=== PATIENT | female | born 1955 | race Caucasian/White ===

== ENCOUNTER 2019-08-04 06:32 | Day surgery (SDC) | payer MEDICARE, BC ==
[~2019-08-04 06:32] MED LIST: Buffered Lidocaine 1% SYRIN* 1 ML/SYRINGE INTRADERM ONE
[2019-08-04] MEDS ORDERED: Midazolam* 1 MG/ML 2 ML VIAL (2 MG) ONE ×3 (08:33→09:59)
[2019-08-04 09:08] VITALS: BP 130/73
--- NOTE | 2019-08-04 10:30 | OP ---
DATE OF OPERATION: 08/04/2019 [facility] DATE OF : 1955. SURGEON: Jose Ocampo M.D. PREOPERATIVE DIAGNOSIS: Cataract right eye. POSTOPERATIVE DIAGNOSIS: Cataract right eye. OPERATIVE PROCEDURE: Extracapsular cataract extraction with intraocular lens implant right eye. DESCRIPTION OF PROCEDURE: The patient was brought to the operating room after being given 1/2% Alcaine with epinephrine drops in the preoperative area. The eye was prepped and draped in the usual sterile fashion. Sterile drape and eyelid speculum were placed. Again, topical 1/2% Alcaine with epinephrine was given. A paracentesis incision was made at the 9 o'clock position with the No.75 blade. Clear cornea incision 2.2 x 2.2-mm was created at the 12 o'clock position starting at the anterior limbus using the 2.2-mm keratome. The anterior chamber was irrigated with 0.4 mL of 1% non-preservative intracameral lidocaine and filled with DisCoVisc. A capsulorrhexis was completed using the cystotome and the Utrata forceps. Hydrodissection was performed with balanced salt solution. The lens nucleus was removed with the Phacoemulsification handpiece without incident. Cortex was removed with the irrigation-aspiration handpiece. The capsular bag was re-inflated using DisCoVisc and an [id number] implant was inserted with the shooter, oriented to the 83 degree meridian. Horizontal reference weldon were made with the patient seated in the preoperative area. All measurements confirmed with ORA. The irrigation- aspiration handpiece was used to remove all residual DisCoVisc. The eye was refilled with balanced salt solution and the wound checked and found to be watertight. Topical Maxitrol drops were given. [id number]/[facility] #: [id number] [facility]
[2019-08-04] MEDS ORDERED: Lidocaine 1% MPF ** 5 ML VIAL ONE (11:20)
[2019-08-04] MEDS ORDERED: Proparacaine 0.5% OPHTH.SOL* 15 ML BTL ONE (11:20)
[2019-08-04] MEDS ORDERED: Lidocaine 2% w/ EPI 1:200,000* 20 ML SDV VIAL ONE (11:20)
[2019-08-04] MEDS ORDERED: acetaZOLAMIDE TAB* 250 MG ONE (11:20)
[2019-08-04] MEDS ORDERED: Phenylephrine OPHTH SOL 2.5%* 2 ML ONE (11:20)
[2019-08-04] MEDS ORDERED: Povidone Iodine 5% OPTH* 30 ML BTL ONE (11:20)
[2019-08-04] MEDS ORDERED: Neomycin/Polymy/Dex OPTH.SUSP* MAXITROL 0.1% 5 ML ONE (11:20)
[2019-08-04] MEDS ORDERED: Cyclopentolate 1% OPTH.SOL* 2 ML BTL ONE (11:20)
[2019-08-04] MEDS ORDERED: Ketorolac 0.5% OPHTH (NF) 0.5 % 5 ML BTL ONE (11:20)
--- NOTE | 2019-08-04 22:04 | OP ---
DATE OF OPERATION: 08/04/19 - [facility] DATE OF : [birth year] SURGEON: Jose Ocampo M.D. ANESTHESIA: Local with MAC. PRE-OP DIAGNOSIS: Implant exchange. POST-OP DIAGNOSIS: Implant exchange. OPERATIVE PROCEDURE: Implant exchange, right eye. COMPLICATIONS: None. DESCRIPTION OF PROCEDURE: The patient was prepped and draped in the usual sterile fashion. The 2% lido with epinephrine was given on the cornea. Lid speculum was placed. A 1% non-preservative intracameral __lidocaine____ injected into the anterior chamber followed by DisCoVisc in front of and behind the current intraocular lens. The intraocular lens was dialed out of the capsule , so that the haptics were anterior to the capsule. A paracentesis was made at the 3 o'clock position with a 75 blade, and then the lens was folded inside the eye and removed through the original incision. ORA measurements were then taken and a new lens implanted, [id number] oriented to the 83 degree meridian without difficulty. Again, preoperative horizontal reference weldon were made in the preoperative area with the patient in a seated position. The viscoelastic was then removed and anterior chamber refilled to the correct intraocular pressure with balanced salt solution. Topical Maxitrol was given. All incisions were found to be watertight. [id number]/[facility] #: [id number] MTDD
== END 2019-08-04 10:35 | disposition home or self-care (01) ==
LOC: OREAST 06:32
PROVIDERS: ATTEND Specialist
DX: H25.811 Combined forms of age-related cataract, right eye (principal); T85.898A Other specified complication of other internal prosthetic devices, implants and grafts, initial encounter; H04.123 Dry eye syndrome of bilateral lacrimal glands; E03.9 Hypothyroidism, unspecified; Z85.820 Personal history of malignant melanoma of skin; M81.0 Age-related osteoporosis without current pathological fracture
CPT/HCPCS: A9270-GY; J2250; V2787

== ENCOUNTER 2019-08-11 06:37 | Day surgery (SDC) | payer MEDICARE, BC ==
[2019-08-11] MEDS ORDERED: Midazolam* 1 MG/ML 2 ML VIAL (2 MG) ONE ×2 (07:53→08:24)
[2019-08-11 09:10] VITALS: BP 153/71
[2019-08-11] MEDS ORDERED: Proparacaine 0.5% OPHTH.SOL* 15 ML BTL ONE (11:01)
[2019-08-11] MEDS ORDERED: acetaZOLAMIDE TAB* 250 MG ONE (11:01)
[2019-08-11] MEDS ORDERED: Ketorolac 0.5% OPHTH (NF) 0.5 % 5 ML BTL ONE (11:01)
[2019-08-11] MEDS ORDERED: Phenylephrine OPHTH SOL 2.5%* 2 ML ONE (11:01)
[2019-08-11] MEDS ORDERED: Cyclopentolate 1% OPTH.SOL* 2 ML BTL ONE (11:01)
[2019-08-11] MEDS ORDERED: Neomycin/Polymy/Dex OPTH.SUSP* MAXITROL 0.1% 5 ML ONE (11:01)
[2019-08-11] MEDS ORDERED: Lidocaine 2% w/ EPI 1:200,000* 20 ML SDV VIAL ONE (11:01)
[2019-08-11] MEDS ORDERED: Povidone Iodine 5% OPTH* 30 ML BTL ONE (11:01)
[2019-08-11] MEDS ORDERED: Lidocaine 1% MPF ** 5 ML VIAL ONE (11:01)
--- NOTE | 2019-08-11 13:07 | OP ---
DATE OF OPERATION: 08/11/19 [facility] DATE OF : [birth year] SURGEON: Jose Ocampo M.D. PREOPERATIVE DIAGNOSIS: Cataract left eye. POSTOPERATIVE DIAGNOSIS: Cataract left eye. OPERATIVE PROCEDURE: Extracapsular cataract extraction with IOL, left eye. DESCRIPTION OF PROCEDURE: The patient was brought to the operating room after being given 1/2% Alcaine with epinephrine drops in the preoperative area. The eye was prepped and draped in the usual sterile fashion. Sterile drape and eyelid speculum were placed. Again, topical 1/2% Alcaine with epinephrine was given. A paracentesis incision was made at the 3 o'clock position with the No.75 blade. Clear cornea incision 2.2 x 2.2-mm was created at the 6 o'clock position starting at the anterior limbus using the 2.2-mm keratome. The anterior chamber was irrigated with 0.4 mL of 1% non-preservative intracameral lidocaine and filled with DisCoVisc. A capsulorrhexis was completed using the cystotome and the Utrata forceps. Hydrodissection was performed with balanced salt solution. The lens nucleus was removed with the Phacoemulsification handpiece without incident. Cortex was removed with the irrigation-aspiration handpiece. The capsular bag was re-inflated using DisCoVisc and an [id number] 22 implant was inserted with the shooter oriented to the 95 degree meridian. All measurements confirmed with ORA. The horizontal reference weldon were made with the patient in preoperative area in a seated position. The irrigation- aspiration handpiece was used to remove all residual DisCoVisc. The eye was refilled with balanced salt solution, and the wound checked and found to be watertight. Topical Maxitrol drops were given. [id number]/[facility] #: [id number] MTDD
== END 2019-08-11 09:02 | disposition home or self-care (01) ==
LOC: OREAST 06:37
PROVIDERS: ATTEND Specialist
DX: H25.812 Combined forms of age-related cataract, left eye (principal); H04.123 Dry eye syndrome of bilateral lacrimal glands; H43.813 Vitreous degeneration, bilateral; E03.9 Hypothyroidism, unspecified; Z85.820 Personal history of malignant melanoma of skin
CPT/HCPCS: A9270-GY; J2250; V2787